=== PATIENT | male | born 1980 | race African-American/Black ===

== ENCOUNTER 2016-09-12 16:40 | Emergency (ER) | payer SELFPAY ==
--- NOTE | 2016-09-12 17:01 | ER Document Report ---
ED Medical Screen (RME) - General Stated Complaint: BACK PAIN Notes: 35 yo male c/o pain to low back x 4-5 yr but c/o pain radiating to left leg today. + numbness. no bowel/bladder change. no fever. hurts to walk. no recent injections, no recent tattoos. no recent trauma - Related Data Allergies/Adverse Reactions: No Known Allergies Allergy (Unverified 06/22/12 18:11) Physical Exam - Vital signs Vitals: Temp Pulse Resp BP Pulse Ox 98.0 F 61 16 127/66 H 100 09/12/16 16:52 09/12/16 16:52 09/12/16 16:52 09/12/16 16:52 09/12/16 16:52 Course - Vital Signs Vital signs: Temp Pulse Resp BP Pulse Ox 98.0 F 61 16 127/66 H 100 09/12/16 16:52 09/12/16 16:52 09/12/16 16:52 09/12/16 16:52 09/12/16 16:52
--- NOTE | 2016-09-12 19:36 | ER Document Report ---
ED Neck/Back Problem - General Chief Complaint: Back Pain Stated Complaint: BACK PAIN Time seen by provider: 19:00 Mode of Arrival: Ambulatory Information source: Patient, [facility] Records Notes: This 35-year-old male patient comes emergency room complaining of left low back pain radiating down the left a thigh causing the left toes to be numb. He noticed this discomfort this morning. He works construction. He has a 4-5 year history of low back pain, but has not had this numbness and tingling to the toes or pain down the back of the thigh in the past. 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 There is no bowel or bladder symptoms or problems. TRAVEL OUTSIDE OF THE [place] IN LAST 30 DAYS: No - Related Data Allergies/Adverse Reactions: No Known Allergies Allergy (Verified 09/12/16 16:57) Past Medical History - General Information source: Patient, [facility] Records - Social History Smoking Status: Current Every Day Smoker Cigarette use (# per day): Yes - 1/4 PPD Chew tobacco use (# tins/day): No Smoking Education Provided: No Frequency of alcohol use: Social Drug Abuse: None Occupation: construction work Lives with: Parents Family History: Reviewed & Not Pertinent Patient has suicidal ideation: No Patient has homicidal ideation: No - Medical History Medical History: Negative Surgical Hx: Negative Review of Systems - Review of Systems Constitutional: No symptoms reported EENT: No symptoms reported Cardiovascular: No symptoms reported Respiratory: No symptoms reported Gastrointestinal: No symptoms reported Genitourinary: No symptoms reported Musculoskeletal: See HPI, Back pain - Off and on for 5 years, usually just takes Aleve, Joint pain - CMP knee pain from time to time Skin: No symptoms reported Hematologic/Lymphatic: No symptoms reported Neurological/Psychological: No symptoms reported Physical Exam - Vital signs Vitals: Temp Pulse Resp BP Pulse Ox 98.0 F 61 16 127/66 H 100 09/12/16 16:52 09/12/16 16:52 09/12/16 16:52 09/12/16 16:52 09/12/16 16:52 Interpretation: Normal - General General appearance: Appears well, Alert In distress: None - HEENT Head: Normocephalic, Atraumatic Eyes: Normal Pupils: PERRL Neck: Normal - Respiratory Respiratory status: No respiratory distress - Cardiovascular Rhythm: Regular - Abdominal Inspection: Normal - Back Back: Tender. No: Normal - Extremities General upper extremity: Normal inspection General lower extremity: Other - The left posterior hip region where the patient indicates pain is not really tender to palpate. Straight leg raising causes some tension and discomfort in the lateral hamstrings near the knee. This discomfort does not seem to follow a dermatome pattern, however the straight leg raising does worsen the numbness sensation to the toes. - Neurological Neuro grossly intact: Yes - Psychological Associated symptoms: Normal affect, Normal mood - Skin Skin Temperature: Warm Skin Moisture: Dry Skin Color: Normal Course - Vital Signs Vital signs: Temp Pulse Resp BP Pulse Ox 98.0 F 61 16 127/66 H 100 09/12/16 16:52 09/12/16 16:52 09/12/16 16:52 09/12/16 16:52 09/12/16 16:52 Discharge - Discharge Clinical Impression: Low back pain potentially associated with radiculopathy Condition: Stable Disposition: HOME, SELF-CARE Additional Instructions: Sciatica: Your symptoms suggest "sciatica." The pain of sciatica typically radiates down the leg. Numbness in the foot or calf may also occur. Sciatica is caused by irritation of the sciatic nerve or its branches. The irritation can be due to a herniated disk in the spine, swelling and inflammation in the muscles surrounding the sciatic nerve, or direct injury of the nerve itself. Most cases of sciatica will resolve with medical treatment. Bed rest is usually recommended initially. Surgery is only necessary when the condition will not improve with rest and antiinflammatory medication. Muscle relaxers are often given if muscle soreness is present. Re-examination is necessary if you develop increasing numbness, localized weakness in the foot or ankle, or if the pain does not respond to rest. TAKE THE MEDICATION PRESCRIBED. REST. AVOID ACTIVITY OR POSITIONS THAT WORSEN THE SYMPTOMS. FOLLOW UP WITH A LOCAL MEDICAL DOCTOR FOR FURTHER EVALUATION IF NOT IMPROVING. Prescriptions: Cyclobenzaprine HCl [Flexeril 5 mg Tablet] 5 mg PO TID PRN #15 tablet PRN Reason: Hydrocodone/Acetaminophen [[place] 5-325 mg Tablet] 1 tab PO Q4 PRN #15 tablet PRN Reason: Prednisone [Deltasone 10 mg Tablet] 10 mg PO ASDIR PRN #21 tablet PRN Reason:
[2016-09-12 20:02] VITALS: BP 122/73
== END 2016-09-12 19:55 | disposition home or self-care (01) ==
LOC: ER 16:40
DX: M54.16 Radiculopathy, lumbar region (principal); M54.5 Low back pain; M54.9 Dorsalgia, unspecified; R20.0 Anesthesia of skin; F17.210 Nicotine dependence, cigarettes, uncomplicated
CPT/HCPCS: 99283